=== PATIENT | male | born 1935 | race Caucasian/White ===

== ENCOUNTER 2022-01-23 08:51 | Outpatient (CLI) | payer MEDICARE, SELFPAY ==
[2022-01-23 09:23] LABS: Estimated Glomerular Filt Rate > 60
== END 2022-01-23 08:52 | disposition home or self-care (01) ==
PROVIDERS: PCP Family Medicine; Visit Provider Family Medicine
DX: R16.0 Hepatomegaly, not elsewhere classified (principal)
CPT/HCPCS: 99199

== ENCOUNTER 2022-01-24 10:19 | Outpatient (CLI) | payer MEDICARE, SELFPAY ==
--- NOTE | ~2022-01-24 | MR_ITS ---
EXAMINATION: MR abdomen wo/w con INDICATION: Liver mass TECHNIQUE: Coronal SSFSE ARC, WATER:coronal LAVA-FLEX, Coronal 2D FIESTA FatSat, Axial SSFSE BH ARC, Axial 3D DualEcho BH, Axial SSFSE-IR, Axial DWI b=500, Axial 2D FIESTA FatSat, pre and dynamic postco ntrast Axial LAVA ARC, postcontrast Coronal In and Opposed phase LAVA FLEX COMPARISON: None available CONTRAST: Multihance, 20 cc FINDINGS: There is a 2.5 x 2.1 cm T1 hypointense, mildly T2 hyperintense mass in liver segment V pam cent to the gallbladder fossa. The mass has a somewhat targetoid appearance and postcontrast imaging with central enhancement and peripheral hypoenhancement. There is mild diffusion restriction. There a re two adjacent masses in liver segment Maury with similar signal intensity characteristics which measu re 1.8 and 1.3 cm. There is a 12 mm cyst in liver segment II. The spleen, pancreas, gallbladder, and adrenal glands are normal. Cysts of the kidneys measure up to 1.9 cm on the right. There is a 1.2 cm hemorrhagic cyst of the right mid kidney. There are no pathologically enlarged abdominal lymph nodes. There are no dilated loops of bowel. Although not well evaluated, there is a questionable left perih ilar lung mass. IMPRESSION: 1. Three liver masses as detailed above with suspicious signal characteristics, possibly reflecting m etastatic disease. Biopsy is recommended. 2. Possible left perihilar lung mass. Recommend correlation with any available prior imaging. If unav ailable, dedicated CT of the chest is recommended. Reviewed, dictated and finalized at location A. IMPRESSION: 1. Three liver masses as detailed above with suspicious signal characteristics, possibly reflecting metastatic disease. Biopsy is recommended. 2. Possible left perihilar lung mass. Recommend correlation with any available prior imaging. If unavailable, dedicated CT of the chest is recommended.
== END 2022-01-24 10:20 | disposition home or self-care (01) ==
LOC: CHSIMG 10:21
PROVIDERS: PCP Family Medicine; Visit Provider Family Medicine
DX: R16.0 Hepatomegaly, not elsewhere classified (principal)
CPT/HCPCS: 74183; A9577